=== PATIENT | female | born 1995 | race Caucasian/White ===

== ENCOUNTER 2019-08-17 01:05 | Emergency (ER) | payer OTHER ==
[~2019-08-17] VITALS: Ht 170.2 cm; Wt 85.5 kg
[2019-08-17 01:19] VITALS: BP 116/79
[2019-08-17] MEDS ORDERED: CLEOCIN HCL150 M1 PO (02:03)
== END 2019-08-17 02:11 | disposition home or self-care (01) ==
LOC: ED 01:05
DX: L02.416 Cutaneous abscess of left lower limb (principal)